=== PATIENT | female | born 2000 | race Caucasian/White ===

== ENCOUNTER 2024-01-20 11:55 | Emergency (ER) | payer BC, SELFPAY ==
[2024-01-20 11:58] VITALS: BP 117/74; PULSE 82; RESP 18; TEMP 37.1; O2SAT 99; BMI 19.2
--- NOTE | 2024-01-20 12:22 | CRLHL7_ITS ---
For Patients: As a result of the Century Cures Act, medical imaging exams and procedure reports are released immediately into your electronic medical record. You may view this report before your referring provider. If you have questions, please contact your health care provider. INDICATION: Chest pain x 2 weeks TECHNIQUE: Chest 2 view(s) COMPARISON: None. FINDINGS: Cardiomediastinal silhouette and pulmonary vasculature are normal. No focal consolidation. No layering pleural effusion. No pneumothorax. Bilateral metallic ornamentation project over the nipples. IMPRESSION: No focal consolidation. Dictated by Elias Sharp MD @ 01/20/2024 2:16:25 PM (Electronically Signed)
--- NOTE | 2024-01-20 12:23 | ED.GENADULT ---
HPI - General Adult General Chief complaint: Chest Pain Stated complaint: Advised to be seen at ER by urgent care Time Seen by Provider: 01/20/24 11:58 History of Present Illness HPI narrative: Patient is a 23-year-old female who recently moved from [place], she does medical marijuana for irritable bowel syndrome. She presents with left-sided chest pain for 3 days duration. It has been worse with deep breathing throwing back or shoulders turning, it is under her left breast and around her left sternal area. She has not find a comfortable position. She has not really tried any medication for this. She has went to Urgent Care had an EKG that showed normal sinus rhythm and then was sent to the emergency department. Patient denies leg swelling, edema, bleeding or clotting problems. She does either do gummies or smoke wear marijuana for her irritable bowel syndrome. Otherwise she is healthy. She is apparently allergic to iodinated contrast media. Related Data Home Medications ?Medication ?Instructions ?Recorded ?Confirmed metronidazole 375 mg capsule 375 mg PO BID 01/20/24 01/20/24 (Flagyl) Previous Rx's ?Medication ?Instructions ?Recorded prednisone 20 mg tablet 20 mg PO BID #10 tabs 01/20/24 Allergies Allergy/AdvReac Type Severity Reaction Status Date / Time Iodinated Contrast Media Allergy Verified 01/20/24 12:02 Review of Systems Status of ROS: Reports: 6 or more systems reviewed and unremarkable except as noted in History and below [facility] Social History Smoking Status: Never smoker How often do you have a drink containing alcohol: never AUDIT-C Alcohol total score: 0 Non-prescribed substance use: marijuana (any form) Exam Narrative: Exam Narrative: Objective vital signs are completely normal Alert or x3 Patient is alert oriented She reports the areas of pain and discomfort as described. Heart is rate and rhythm regular murmur no rubs or clicks Lungs are clear Abdomen benign soft Extremities are no edema neurologic nonfocal Const: Vital Signs, click to edit/add: Vital Signs - 24 hr 01/20/24 11:58 01/20/24 12:46 01/20/24 13:25 Temperature 98.7 F Pulse Rate 80 79 Pulse Rate [Right Pulse Oximeter] 82 Respiratory Rate 18 Blood Pressure [Le ft Upper Arm] 117/74 Pulse Oximetry 99 100 100 Oxygen Delivery Me thod Room Air 01/20/24 13:34 Temperature Pulse Rate 73 Pulse Rate [Right Pulse Oximeter] Respiratory Rate Blood Pressure [Le ft Upper Arm] Pulse Oximetry 98 Oxygen Delivery Me thod Course Vital Signs Vital signs: Initial Vital Signs Temperature 98.7 F 01/20/24 11:58 Temperature Source Temporal Artery Scan 01/20/24 11:58 Pulse Rate 82 01/20/24 11:58 Respiratory Rate 18 01/20/24 11:58 Blood Pressure 117/74 01/20/24 11:58 Blood Pressure Mean 88 01/20/24 11:58 Blood Pressure Position Sitting 01/20/24 11:58 Pulse Oximetry 99 01/20/24 11:58 Oxygen Delivery Method Room Air 01/20/24 11:58 Vital Signs Temperature 98.7 F 01/20/24 11:58 Pulse Rate 82 01/20/24 11:58 Respiratory Rate 18 01/20/24 11:58 Blood Pressure 117/74 01/20/24 11:58 Pulse Oximetry 99 01/20/24 11:58 Oxygen Delivery Method Room Air 01/20/24 11:58 Temperature 98.7 F 01/20/24 11:58 Pulse Rate 73 01/20/24 13:34 Respiratory Rate 18 01/20/24 11:58 Blood Pressure 117/74 01/20/24 11:58 Pulse Oximetry 98 01/20/24 13:34 Oxygen Delivery Method Room Air 01/20/24 11:58 Medications Administered Medications: Discontinued Medications Generic Name Dose Route Start Last Admin Trade Name Demetra PRN Reason Stop Dose Admin Ketorolac Tromethamine 10 mg 01/20/24 12:22 01/20/24 12:38 Ketorolac 10 Mg Tablet PO 01/20/24 12:23 10 mg ONCE ONE Administration Medical Decision Making MDM Narrative Medical decision making narrative: [age] year white female who uses medical marijuana, presents with intermittent chest discomfort. It is palpably tender in her left lower chest wall and in her parasternal area. This is the discomfort she is feeling. I think it be reasonable however to check a lab studies in the form of a repeat EKG, heme 4 CRP, Chem profile and a D-dimer and a point of care troponin. Will give her Toradol orally. She declined denies at this time. Addendum 1:37 p.m. initially with the patient's symptoms I think it is important to look and make sure she has done a pericarditis in that does not seem to be the case with her normal EKG by my read with no acute ST T wave changes, she also has a negative CRP. She also has a negative D-dimer. She has a normal white count normal hemoglobin with a normal differential. Her potassium is slightly low normal at 3.4. The patient's chest x-ray two view by my review looks unremarkable. At this point I am simply waiting for troponin I. When that is negative we can discharge her home. Will give her prednisone 20 mg b.i.d. for 5 days as I think this is chest wall inflammatory condition. Will stay however take Aleve 2 twice a day for the next 5 days. Recheck with primary care in the next 2-3 days not completely resolved return sooner to ER ED problems or concerns concerns. Lab Data Labs: Lab Results 01/20/24 Range/Units 12:37 WBC 9.87 (4.50-11.00) K/uL RBC 4.61 (4.00-5.20) m/uL Hgb 14.0 (12.0-16.0) gm/dL Hct 43.0 (33.0-51.0) % MCV 93 (80-100) fL MCH 30 (26-34) pg MCHC 33 (32-36) gm/dL RDW Coeff of Maribel 12.4 (11.5-15.5) % Plt Count 165 (140-440) K/uL Neut % (Auto) 61.4 (42.0-72.0) % Lymph % (Auto) 30.2 (20-44) % Charles % (Auto) 6.0 (0.0-11.0) % Eos % (Auto) 2.0 (0.0-7.0) % Baso % (Auto) 0.2 (0.0-3.0) % Neut # (Auto) 6.06 (1.7-7.0) K/uL Lymph # (Auto) 2.98 H (0.90-2.90) K/uL Charles # (Auto) 0.60 (0.00-0.90) K/UL Eos # (Auto) 0.20 (0.00-0.50) K/uL Baso # (Auto) 0.02 (0.00-0.30) K/uL Abs Immat Gran (auto) 0.02 (0.00-0.30) K/uL Imm/Tot Granulo (auto) 0.2 % D-Dimer Quant (PE/DVT) 0.19 (0.00-0.50) ug/ml Sodium 137 (135-149) mmol/L Potassium 3.4 L (3.6-5.1) mmol/L Chloride 103 (96-114) mmol/L Carbon Dioxide 25 (20-32) mmol/L Anion Gap 9 (7-15) mEq/L BUN 16 (5-24) mg/dL Creatinine 0.7 (0.5-1.5) mg/dL Estimated Creat Clear 93.98 Estimated GFR 125 ml/min Glucose 88 (60-115) mg/dL Calcium 9.1 (8.4-10.6) mg/dL Troponin I < 0.01 L (0.01-0.04) ng/mL C-Reactive Protein < 0.5 L (0.5-1.0) mg/dL Discharge Plan Discharge Clinical Impression: Acute chest wall pain Patient Disposition: Home w/ Parent or Adult Condition: Stable Additional Instructions: Aleve 2 tablets twice a day for the next 5 days, prednisone as prescribed. Light activity, return to the primary care within the next couple of days for recheck. If he has problems or concerns or changes that are worsening he can return to the ED at any time. Activity Level: Light activity Discharge Diet: Regular Prescriptions: New prednisone 20 mg tablet 20 mg PO BID Qty: 10 0RF No Action metronidazole [Flagyl] 375 mg capsule 375 mg PO BID Stand Alone Forms: MyHealth Info Instructions
[2024-01-20] MEDS: KETOROLAC 10 MG TABLET PO (12:38)
[2024-01-20 12:43] LABS: Basophils Absolute Auto 0.02 K/uL (0.00-0.30); Basophils Percent Auto 0.2 % (0.0-3.0); Immature Granulocytes Abs Auto 0.02 K/uL (0.00-0.30); Immature Granulocytes Pct Auto 0.2 %; Lymphocytes Absolute Auto 2.98 K/uL (0.90-2.90); Lymphocytes Percent Auto 30.2 % (20-44); Mean Corpuscular HGB Conc 33 gm/dL (32-36); Mean Corpuscular Hemoglobin 30 pg (26-34); Mean Corpuscular Volume 93 fL (80-100); Neutrophils Absolute Auto 6.06 K/uL (1.7-7.0); Neutrophils Percent Auto 61.4 % (42.0-72.0); Platelet Count* 165 K/uL (140-440); RDW Coefficient of Variation % 12.4 % (11.5-15.5); Red Blood Count 4.61 m/uL (4.00-5.20); White Blood Count* 9.87 K/uL (4.50-11.00)
[2024-01-20 12:46] VITALS: PULSE 80; O2SAT 100
[2024-01-20 12:50] LABS: Slide Review Reflex No
[2024-01-20 13:12] LABS: Chloride* 103 mmol/L (96-114); Potassium* 3.4 mmol/L (3.6-5.1); Sodium* 137 mmol/L (135-149)
[2024-01-20 13:14] LABS: Creatinine* 0.7 mg/dL (0.5-1.5); Est. Creatinine Clearance* 93.98; Estimated Glomerular Filt Rate 125 ml/min
[2024-01-20 13:15] LABS: Carbon Dioxide* 25 mmol/L (20-32)
[2024-01-20 13:16] LABS: Anion Gap 9 mEq/L (7-15); Blood Urea Nitrogen* 16 mg/dL (5-24); Calcium* 9.1 mg/dL (8.4-10.6); D Dimer Quantitative* 0.19 ug/ml (0.00-0.50); Glucose* 88 mg/dL (60-115)
[2024-01-20 13:19] LABS: C Reactive Protein* < 0.5 mg/dL (0.5-1.0)
[2024-01-20 13:25] VITALS: PULSE 79; O2SAT 100
[2024-01-20 13:34] VITALS: PULSE 73; O2SAT 98
[2024-01-20 14:03] LABS: Troponin I* < 0.01 ng/mL (0.01-0.04)
== END 2024-01-20 14:21 | disposition home or self-care (01) ==
PROVIDERS: Emergency Provider Family Medicine
DX: R07.89 Other chest pain (principal)
CPT/HCPCS: 36415; 71046; 80048; 84484; 85025; 85379; 86140; 93005; 94761; 99284; 99285; A9270